=== PATIENT | female | born 1930 | race Hispanic/Latino ===

== ENCOUNTER 2018-04-23 14:53 | Inpatient (IN) | payer MEDICARE ==
[2018-04-23 15:16] VITALS: BMI 20.2
[2018-04-23] MEDS ORDERED: Pantoprazole 40 MG in Sodium Chloride 0.9% 100 ML IV STA (15:22)
[2018-04-23] MEDS ORDERED: Sodium Chloride 0.9% 500 ML IV STA (15:23)
--- NOTE | 2018-04-23 15:37 | ED PDOC ---
Arrival/HPI - General Time Seen by Provider: 04/23/18 15:14 Historian: Patient, Mcc (halfway helped provide information) - History of Present Illness Narrative History of Present Illness (Text): 04/23/18 15:14 88 year old female, whose past medical history includes hysterectomy, colostomy status post perforated viscus, and colonic vesicular fistula status post repair, who was sent to the Emergency department from [facility] complaining of abdominal pain, described as a burning sensation in stomach. As per halfway, pt says that she does not want to live anymore and was sent here for further evaluation. Patient notes nausea and vomiting. Pt was able to answer where she is correctly, but when asked what year it is pt said it is "1916." Pt is a poor historian. PMD: Dr. López Time/Duration: Prior to Arrival Symptom Onset: Sudden Symptom Course: Unchanged Quality: Burning (pt described abdominal pain as burning sensation) Past Medical History - Provider Review Nursing Documentation Reviewed: Yes - Reproductive Menopause: Yes - Cardiac Hx Cardiac Disorders: Yes Hx Hypertension: Yes - Pulmonary Hx Respiratory Disorders: Yes Hx Chronic Obstructive Pulmonary Disease (COPD): Yes - Gastrointestinal Hx Colitis: Yes Hx Colostomy: Yes - Genitourinary/Gynecological Hx Urinary Tract Infection: Yes - Psychiatric Hx Substance Use: No - Surgical History Other/Comment: colostomy - Anesthesia Hx Anesthesia: Yes Hx Anesthesia Reactions: No Hx Malignant Hyperthermia: No Family/Social History - Physician Review Nursing Documentation Reviewed: Yes Family/Social History: No Known Family HX Smoking Status: Former Smoker Hx Alcohol Use: No Hx Substance Use: No Allergies/Home Meds Allergies/Adverse Reactions: Allergies No Known Allergies Allergy (Verified 04/23/18 15:15) Review of Systems - Physician Review All systems were reviewed & negative as marked: Yes - Review of Systems Gastrointestinal: Abdominal Pain (pt notes abdominal pain, described as burning sensation), Nausea (pt notes nausea), Vomiting (pt notes vomiting). absent: Normal Physical Exam Vital Signs Reviewed: Yes Vital Signs Temp Pulse Resp BP Pulse Ox 04/23/18 15:16 98 F 76 18 116/60 95 Temperature: Afebrile Blood Pressure: Normal Pulse: Regular Respiratory Rate: Normal Appearance: Positive for: Well-Appearing, Non-Toxic Pain Distress: Mild Mental Status: Positive for: Confused (pt is alert and confused ) - Systems Exam Head: Present: Atraumatic, Normocephalic Pupils: Present: PERRL Extroacular Muscles: Present: EOMI Conjunctiva: Present: Normal Mouth: Present: Moist Mucous Membranes Neck: Present: Normal Range of Motion Respiratory/Chest: Present: Clear to Auscultation, Good Air Exchange. No: Respiratory Distress, Accessory Muscle Use Cardiovascular: Present: Regular Rate and Rhythm, Normal S1, S2. No: Murmurs Abdomen: Present: Tenderness (minimal nonfocal tenderness) Back: Present: Normal Inspection Upper Extremity: Present: Normal Inspection. No: Cyanosis, Edema Lower Extremity: Present: Normal Inspection. No: Edema Neurological: Present: GCS=15, CN II-XII Intact, Speech Normal Skin: Present: Warm, Dry, Normal Color. No: Rashes Psychiatric: Present: Alert, Other (confused) Medical Decision Making ED Course and Treatment: 04/23/18 15:14 Impression: 88 year old female who presents to the Emergency department complaining of abdominal pain, described as a burning sensation in stomach. Differential Diagnosis included but are not limited to: ?si ho of chorinc abd pain. esbl Plan: -- EKG -- Labs -- Amylase -- Cardiac ISO -- CMP -- Lipase -- CBC (with differential) -- PTT -- Prothrombin Time -- Protonix Inj 40mg Sodium chloride 0.9% 100ml IV -- IV fluids -- Urinalysis -- Reassess and disposition Progress Notes: 04/23/18 20:24 urine positve for esbl noted leukocytosi and gross hemautira. h/ o of esbl senstive to iv antibiotics. will admit medical and consult [facility] inpt. accpeted dr frias, - EKG Interpretation EKG Interpretation (Text): 04/23/18 EKG: Ordered, reviewed, and independently interpreted the EKG. Rate : 80 BPM Rhythm : NSR Interpretation : Nonspecific st-t wave changes Type: 12 lead EKG - Medication Orders Current Medication Orders: Pantoprazole Sodium 40 mg/ (Sodium Chloride) 100 mls @ 400 mls/hr IV STAT STA Stop: 04/23/18 15:36 Sodium Chloride (Sodium Chloride 0.9%) 500 mls @ 999 mls/hr IV .Q31M STA Stop: 04/23/18 15:53 - Scribe Statement The provider has reviewed the documentation as recorded by the Scribe Andreia Williamanjh All medical record entries made by the Ermelinda were at my direction and personally dictated by me. I have reviewed the chart and agree that the record accurately reflects my personal performance of the history, physical exam, medical decision making, and the department course for this patient. I have also personally directed, reviewed, and agree with the discharge instructions and disposition. Disposition/Present on Arrival - Present on Arrival Any Indicators Present on Arrival: No History of DVT/PE: No History of Uncontrolled Diabetes: No Urinary Catheter: No History of Decub. Ulcer: No History Surgical Site Infection Following: None - Disposition Have Diagnosis and Disposition been Completed?: Yes Diagnosis: ESBL (extended spectrum beta-lactamase) producing bacteria infection, UTI (urinary tract infection), Acute kidney injury, Hematuria, Suicidal ideation Disposition: HOSPITALIZED Disposition Time: 18:00 Condition: STABLE
--- NOTE | 2018-04-23 17:10 | RAD ---
Date of service: 04/23/2018 HISTORY: Abdominal pain. COMPARISON: No prior. FINDINGS: LUNGS: No active pulmonary disease. PLEURA: No significant pleural effusion identified, no pneumothorax apparent. CARDIOVASCULAR: No atherosclerotic calcification present No radiographic findings to suggest acute or significant cardiovascular disease. OSSEOUS STRUCTURES: No significant abnormalities. VISUALIZED UPPER ABDOMEN: Normal. OTHER FINDINGS: None. IMPRESSION: No active disease.
[2018-04-23 17:47] LABS: BASO # 0.07 K/mm3 (0.0-2.0); BASO % 0.4 % (0.0-3.0); EOS # 0.1 (0.0-0.7); EOS % 0.6 % (1.5-5.0); GRAN # 15.74 (1.4-6.5); GRAN % 82.1 % (50.0-68.0); HEMOGLOBIN 11.3 g/dL (12.0-16.0); LYMPH # 2.4 (1.2-3.4); LYMPH % 12.6 % (22.0-35.0); MEAN CELL VOLUME 87.3 fl (80.0-105.0); MEAN CORPUSCULAR HEMOGLOBIN 28.7 pg (25.0-35.0); MEAN CORPUSCULAR HGB CONC 32.8 g/dl (31.0-37.0); MEAN PLATELET VOLUME 9.4 fl (7.0-11.0); MONO # 0.8 (0.1-0.6); MONO % 4.3 % (1.0-6.0); RBC 3.94 10^6/uL (3.5-6.1); RED CELL DISTRIBUTION WIDTH 16.5 % (11.5-14.5); WHITE BLOOD COUNT 19.2 10^3/uL (4.5-11.0)
[2018-04-23 17:52] LABS: ACETAMINOPHEN < 10.0 ug/ml (10.0-20.0); SALICYLATE < 1 mg/dL (2.0-20.0)
[2018-04-23 17:54] LABS: ALB/GLOB RATIO 0.9 (1.1-1.8); ALBUMIN 3.4 g/dL (3.0-4.8); ALT/SGPT 19 U/L (7-56); AMYLASE 67 U/L (35-125); AST/SGOT 18 U/L (14-36); BLOOD UREA NITROGEN 58 mg/dL (7-21); CALCIUM 9.2 mg/dL (8.4-10.5); GFR NON-AFRICAN AMERICAN 28; LIPASE 242 U/L (23-300)
[2018-04-23 17:55] LABS: INR 1.28; PARTIAL THROMBOPLASTIN TIME 25.8 Seconds (25.1-36.5); PROTHROMBIN TIME 14.7 SECONDS (9.4-12.5)
[2018-04-23 18:04] LABS: TROPONIN I 0.02 ng/mL
--- NOTE | 2018-04-23 18:36 | CT ---
Date of service: 04/23/2018 PROCEDURE: CT Abdomen and Pelvis without intravenous contrast HISTORY: abd pain h/o of colostomy COMPARISON: None. TECHNIQUE: Unenhanced. Neither IV nor oral contrast administered Radiation dose: Total exam DLP = 260.59 mGy-cm. This CT exam was performed using one or more of the following dose reduction techniques: Automated exposure control, adjustment of the mA and/or kV according to patient size, and/or use of iterative reconstruction technique. FINDINGS: LOWER THORAX: Bibasilar linear atelectasis LIVER: Unremarkable. No gross lesion or ductal dilatation. GALLBLADDER AND BILE DUCTS: Unremarkable. PANCREAS: Unremarkable. No gross lesion or ductal dilatation. SPLEEN: Unremarkable. ADRENALS: Unremarkable. No mass. KIDNEYS AND URETERS: Right kidney in ureter: Unremarkable. No hydronephrosis. No solid mass. Left kidney in ureter: Exophytic partially calcified cyst projects off the anterior aspect of the left kidney. Dilatation of the left collecting system, extrarenal pelvis on the left. The remainder of the left ureter is of normal caliber and course. VASCULATURE: Atherosclerotic calcification and mural plaque present. Findings are seen throughout the aorta which is non aneurysmal. BOWEL: Unremarkable left lower quadrant colostomy. No evidence of prolapsed bowel within the subcutaneous tissues. No evidence of mechanical obstruction. Diverticulosis without acute diverticulitis. APPENDIX: No abnormalities to suggest acute appendicitis. No right lower quadrant inflammatory processes identified. PERITONEUM: Unremarkable. No free fluid. No free air. LYMPH NODES: Unremarkable. No enlarged lymph nodes. BLADDER: Air-fluid level the urinary bladder. Chaidez catheter in place/satisfactory position. REPRODUCTIVE: Unremarkable. BONES: No acute fracture. OTHER FINDINGS: None. IMPRESSION: Unremarkable colostomy and adjacent, associated bowel. No acute findings related to/ accounting for the clinical presentation. Additional benign and/or incidental findings described above.
[2018-04-23] MEDS ORDERED: cefTRIAXone 1 gm 1 GM/100 ML BAG IVPB STA (18:49)
--- NOTE | 2018-04-23 18:52 | CARD ---
APPROVED REPORT Date of service: 04/23/2018 EKG Measurement Heart [id number] <Conclusion> Normal sinus rhythm Septal infarct, age undetermined Nonspecific T wave abnormality, consider lateral ischemia Abnormal ECG
[2018-04-23] MEDS ORDERED: Sod Polystyrene Sulf 15 gm/60 ml Susp PO STA (19:24)
[2018-04-23 19:52] LABS: URINE BILIRUBIN SMALL (NEGATIVE); URINE BLOOD LARGE (NEGATIVE); URINE GLUCOSE (UA) NEGATIVE (NEGATIVE); URINE LEUKOCYTE ESTERASE MODERATE Leu/uL (NEGATIVE); URINE PROTEIN >=300 mg/dL (<30 mg/dL); URINE UROBILINOGEN 0.2 E.U./dL (<1 E.U./dL)
[2018-04-23 19:56] LABS: URINE APPEARANCE BLOODY (CLEAR)
[2018-04-23 20:09] LABS: URINE BACTERIA SMALL (NEG); URINE COLOR DARK RED (YELLOW); URINE EPITHELIAL CELLS MANY /hpf (0-5); URINE RBC TNTC /hpf (0-2); URINE WBC TNTC /hpf (0-6)
--- NOTE | 2018-04-23 21:27 | CP.PCM.HP ---
<Sandie Collier - Last Filed: 04/24/18 06:26> History of Present Illness - History of Present Illness History of Present Illness: Sandie Collier, PGY1 Hospital H&P This is a 88 year old female with PMH of HTN, HLD, COPD, depression, colostomy s/p perforated viscus and colonic vesicular fistula s/p repair presenting to the ED from [facility] for approximately 2 week history of abdominal pain and UTI. Patient is poor historian at this time and history obtained from medical records from [facility] and EMS. Patient has been complaining of B/L lower abdominal pain for the last few weeks associated with urinary burning as well as nausea and vomiting. Patient has tested positive for ESBL in past. Patient also is admitting to suicidal ideations over the last week week but denies suicidal ideations at this time time including visual/auditory hallucinations. Per [facility] documentation, patient is DNR/DNH/DNI but will need hospitalization due to suicidal ideations. 12 point ROS is limited due to patient status at this time and patient denies CP, SOB, fevers, headaches, urinary frequency, dysuria, hematuria, hematemesis, numbness, tingling, swelling and recent sickness. PMD: Dr. López PMH: HTN, HLD, COPD, depression, colostomy s/p perforated viscus and colonic vesicular fistula s/p repair SH: admits to occasional drinking and smoking, denies and drug use Sx: hysterectomy, colostomy s/p perforated viscus and colonic vesicular fistula s/p repair All: KNDA FH: denies Present on Admission - Present on Admission Any Indicators Present on Admission: Yes Urinary Catheter: Yes Past Patient History - Past Social History Smoking Status: Light Smoker < 10 Cigarettes Daily - CARDIAC Hx Cardiac Disorders: Yes Hx Hypertension: Yes - PULMONARY Hx Respiratory Disorders: Yes Hx Chronic Obstructive Pulmonary Disease (COPD): Yes - GASTROINTESTINAL Hx Colitis: Yes Hx Colostomy: Yes - GENITOURINARY/GYNECOLOGICAL Hx Urinary Tract Infection: Yes - PSYCHIATRIC Hx Substance Use: No - SURGICAL HISTORY Other/Comment: colostomy - ANESTHESIA Hx Anesthesia: Yes Hx Anesthesia Reactions: No Hx Malignant Hyperthermia: No Meds Allergies/Adverse Reactions: Allergies Allergy/AdvReac Type Severity Reaction Status Date / Time cat dander Allergy RASH Verified 04/24/18 07:45 Physical Exam - Constitutional Appears: No Acute Distress Additional comments: lethargic - Head Exam Head Exam: ATRAUMATIC, NORMAL INSPECTION - Eye Exam Eye Exam: EOMI Pupil Exam: PERRL - ENT Exam ENT Exam: Mucous Membranes Dry - Respiratory Exam Respiratory Exam: Clear to Auscultation Bilateral, NORMAL BREATHING PATTERN. absent: Accessory Muscle Use, Wheezes - Cardiovascular Exam Cardiovascular Exam: REGULAR RHYTHM, +S1, +S2 - GI/Abdominal Exam GI & Abdominal Exam: Normal Bowel Sounds, Soft. absent: Distended, Firm, Guarding, Tenderness Additional comments: left sided colostomy bag present draining brown stool, no hematochezia appreciated. Colostomy site is non erythematous, no puss appreciated - Extremities Exam Extremities exam: Positive for: normal inspection, pedal pulses present. Negative for: calf tenderness, tenderness - Back Exam Back exam: NORMAL INSPECTION - Neurological Exam Neurological exam: Alert, Altered, CN II-XII Intact Additional comments: Alert to person and place, not oriented to time - Skin Skin Exam: Normal Color, Warm Results - Vital Signs Recent Vital Signs: Last Vital Signs Temp 98 F 04/23/18 15:16 Pulse 73 04/23/18 20:52 Resp 18 04/23/18 20:52 BP 118/55 L 04/23/18 20:52 Pulse Ox 96 04/23/18 20:52 - Labs Result Diagrams: 04/23/18 17:30 04/23/18 17:30 Labs: Laboratory Results - last 24 hr 04/23/18 04/23/18 04/23/18 17:30 17:30 17:30 WBC 19.2 H RBC 3.94 Hgb 11.3 L Hct 34.4 L MCV 87.3 MCH 28.7 MCHC 32.8 RDW 16.5 H Plt Count 484 H MPV 9.4 Gran % 82.1 H Lymph % (Auto) 12.6 L [place] % (Auto) 4.3 Eos % (Auto) 0.6 L Baso % (Auto) 0.4 Gran # 15.74 H Lymph # (Auto) 2.4 [place] # (Auto) 0.8 H Eos # (Auto) 0.1 Baso # (Auto) 0.07 PT 14.7 H INR 1.28 APTT 25.8 Sodium 131 L Potassium 5.3 H Chloride 106 Carbon Dioxide 15 L Anion Gap 15 BUN 58 H Creatinine 1.7 H Est GFR ( Amer) 34 Est GFR (Non-Af Amer) 28 Random Glucose 138 H Calcium 9.2 Total Bilirubin 0.4 AST 18 ALT 19 Alkaline Phosphatase 94 Lactate Dehydrogenase 420 Total Creatine Kinase < 20 L Troponin I 0.02 Total Protein 7.1 Albumin 3.4 Globulin 3.7 Albumin/Globulin Ratio 0.9 L Amylase 67 Lipase 242 Urine Color Urine Appearance Urine pH Ur Specific [place] Urine Protein Urine Glucose (UA) Urine Ketones Urine Blood Urine Nitrate Urine Bilirubin Urine Urobilinogen Ur Leukocyte Esterase Urine RBC Urine WBC Ur Epithelial Cells Urine Bacteria Salicylates Acetaminophen Alcohol, Quantitative 04/23/18 04/23/18 04/23/18 17:30 17:30 18:50 WBC RBC Hgb Hct MCV MCH MCHC RDW Plt Count MPV Gran % Lymph % (Auto) [place] % (Auto) Eos % (Auto) Baso % (Auto) Gran # Lymph # (Auto) [place] # (Auto) Eos # (Auto) Baso # (Auto) PT INR APTT Sodium Potassium Chloride Carbon Dioxide Anion Gap BUN Creatinine Est GFR ( Amer) Est GFR (Non-Af Amer) Random Glucose Calcium Total Bilirubin AST ALT Alkaline Phosphatase Lactate Dehydrogenase Total Creatine Kinase Troponin I Total Protein Albumin Globulin Albumin/Globulin Ratio Amylase Lipase Urine Color Dark red Urine Appearance Bloody Urine pH 7.0 Ur Specific [place] 1.025 Urine Protein >=300 H Urine Glucose (UA) Negative Urine Ketones Negative Urine Blood Large H Urine Nitrate Positive H Urine Bilirubin Small H Urine Urobilinogen 0.2 Ur Leukocyte Esterase Moderate H Urine RBC Tntc Urine WBC Tntc Ur Epithelial Cells Many Urine Bacteria Small Salicylates < 1 L Acetaminophen < 10.0 L Alcohol, Quantitative < 10 Assessment & Plan - Assessment and Plan (Free Text) Assessment: This is a 88 year old female with PMH of HTN, HLD, COPD, depression, colostomy s/p perforated viscus and colonic vesicular fistula s/p repair presenting to the ED from [facility] for approximately 2 week history of abdominal pain and UTI. Plan: UTI -U/A positive for protein, blood, nitrate, leuk esterase -continue rocephin day 1 -urine culture pending -procalc pending -previous U/A on 04/07 was negative for nitrates and leuk esterase -pelvic US on 04/13/18 was unremarkable -elevated WBC on initial presentation, will monitor. WBC on 04/13/18 was 16.8 VALENTIN -consider etiology of dehydration -BUN/Cr on 04/13/18 was 28/1 -NS @ 100cc -if not improved by AM, recommend nephrology consult Hyponatremia -likely 2/2 dehydration -NS @ 100cc -Na level on 04/13/18 was 138 -will monitor Hyperkalemia -kayexalate give in ED -f/u AM labs Hx of HTN -metoprolol, losartan and amlodipine -ASA Hx of depression -lexapro Hx of COPD -duonebs -prednisone 5mg, advair Hx of HLD -lipitor Suicidal Ideations -denies command auditory/visual hallucinations -1:1 watch -psych on consult, Dr. Nails DNH Status -[facility] documentations indicate patient is DNI/DNR/DNH -due to patient's suidical ideations we will admit patient, follow up in AM if patient needs continued hospitalization PPX with SCD and pepcid HHD Patient seen and case discussed with attending, Dr. Carrasco <Chau Carrasco - Last Filed: 04/27/18 02:08> Results - Vital Signs Recent Vital Signs: Last Vital Signs Temp 98.7 F 04/26/18 21:51 Pulse 84 04/26/18 21:51 Resp 18 04/26/18 21:51 BP 118/68 04/26/18 21:51 Pulse Ox 96 04/26/18 21:51 - Labs Result Diagrams: 04/24/18 06:20 04/24/18 06:20 Attending/Attestation - Attestation I have personally seen and examined this patient.: Yes I have fully participated in the care of the patient.: Yes I have reviewed all pertinent clinical information: Yes
[2018-04-24] MEDS ORDERED: Albuterol-Ipratrop 3 mg / 0.5 (3 ml) UD IH PRN (00:01)
[2018-04-24] MEDS: Sodium Chloride 0.9% 1,000 ML IV SCH ×3 (00:10→19:49)
[2018-04-24] MEDS ORDERED: Oxycodone/Acetaminophen 5/325 mg Tab PO PRN (06:24)
[2018-04-24] MEDS ORDERED: Magnesium Hydroxide Susp 30 ml UD PO PRN (06:24)
[2018-04-24 07:00] LABS: BASO # 0.05 K/mm3 (0.0-2.0); BASO % 0.3 % (0.0-3.0); EOS # 0.4 (0.0-0.7); EOS % 2.6 % (1.5-5.0); GRAN # 10.27 (1.4-6.5); GRAN % 71.5 % (50.0-68.0); HEMOGLOBIN 10.7 g/dL (12.0-16.0); LYMPH # 2.8 (1.2-3.4); LYMPH % 19.2 % (22.0-35.0); MEAN CELL VOLUME 88.9 fl (80.0-105.0); MEAN CORPUSCULAR HEMOGLOBIN 28.3 pg (25.0-35.0); MEAN CORPUSCULAR HGB CONC 31.8 g/dl (31.0-37.0); MEAN PLATELET VOLUME 9.7 fl (7.0-11.0); MONO # 0.9 (0.1-0.6); MONO % 6.4 % (1.0-6.0); RBC 3.78 10^6/uL (3.5-6.1); RED CELL DISTRIBUTION WIDTH 16.9 % (11.5-14.5); WHITE BLOOD COUNT 14.4 10^3/uL (4.5-11.0)
[2018-04-24 07:22] LABS: ALB/GLOB RATIO 0.9 (1.1-1.8); ALBUMIN 3.1 g/dL (3.0-4.8); CALCIUM 8.9 mg/dL (8.4-10.5)
[2018-04-24] MEDS: Budesonide 0.5 mg/2 ml Inhal Susp UD IH SCH ×2 (07:22→20:17)
[2018-04-24] MEDS: Arformoterol 15 mcg/2 ml Inh Sol IH SCH ×2 (07:22→20:17)
[2018-04-24] MEDS ORDERED: cefTRIAXone 1 gm 1 GM/100 ML BAG IVPB SCH (10:00)
[2018-04-24] MEDS ORDERED: Fluticasone-Salmeterol 250-50mcg Diskus IH SCH (10:00)
--- NOTE | 2018-04-24 10:20 | CP.PCM.APN ---
Subjective - Date & Time of Evaluation Date of Evaluation: 04/24/18 Time of Evaluation: 07:50 - Subjective Subjective: Pt seen and examined at bedside. Denies abdominal pain, nausea or vomiting. In no acute distress. Pt on 1:1 observation. Pt states that she would rather than be sick. Review of Systems - Gastrointestinal Gastrointestinal: As Per HPI - Genitourinary Additional comments: burning sensation Objective - Vital Signs/Intake and Output Vital Signs (last 24 hours): Temp Pulse Resp BP Pulse Ox 97.9 F 88 18 112/54 L 98 04/24/18 06:00 04/24/18 08:46 04/24/18 06:00 04/24/18 06:00 04/24/18 06:00 - Medications Medications: Current Medications Albuterol/Ipratropium (Duoneb 3 Mg/0.5 Mg (3 Ml) Ud) 3 ml IH Q2H PRN PRN Reason: Shortness of Breath Last Admin: 04/24/18 07:22 Dose: 3 ml Amlodipine Besylate (Norvasc) 10 mg PO DAILY [facility] Arformoterol Tartrate (Brovana) 15 mcg IH [id number] [facility] Last Admin: 04/24/18 07:22 Dose: 15 mcg Aspirin (Aspirin Chewable) 81 mg PO DAILY [facility] Atorvastatin Calcium (Lipitor) 40 mg PO DIN [facility] Budesonide (Pulmicort Respules) 0.5 mg IH [id number] [facility] Last Admin: 04/24/18 07:22 Dose: 0.5 mg Escitalopram Oxalate (Lexapro) 5 mg PO DAILY [facility] Famotidine (Pepcid) 20 mg IVP DAILY [facility] Ceftriaxone Sodium (Rocephin 1 Gram Ivpb) 1 gm in 100 mls @ 100 mls/hr IVPB DAILY [facility]; Protocol Sodium Chloride (Sodium Chloride 0.9%) 1,000 mls @ 100 mls/hr IV .Q10H [facility] Last Admin: 04/24/18 00:10 Dose: 100 mls/hr Loperamide HCl (Imodium) 2 mg PO QID PRN PRN Reason: Diarrhea Losartan Potassium (Cozaar) 100 mg PO DAILY [facility] Magnesium Hydroxide (Milk Of Magnesia) 30 ml PO DAILY PRN PRN Reason: Constipation Metoprolol Succinate (Toprol Xl) 50 mg PO BRK [facility] Oxycodone/Acetaminophen (Percocet 5/325 Mg Tab) 1 tab PO Q6H PRN PRN Reason: Pain, severe (8-10) Stop: 04/27/18 06:25 Prednisone (Prednisone Tab) 5 mg PO DAILY [facility] - Labs Labs: 04/24/18 06:20 04/24/18 06:20 PT 14.7 SECONDS (9.4-12.5) H 04/23/18 17:30 INR 1.28 04/23/18 17:30 APTT 25.8 Seconds (25.1-36.5) 04/23/18 17:30 - Constitutional Appears: Well, No Acute Distress - Head Exam Head Exam: ATRAUMATIC, NORMAL INSPECTION, NORMOCEPHALIC - Eye Exam Eye Exam: Normal appearance - ENT Exam ENT Exam: Normal Exam - Neck Exam Neck Exam: Full ROM - Respiratory Exam Respiratory Exam: NORMAL BREATHING PATTERN - Cardiovascular Exam Cardiovascular Exam: REGULAR RHYTHM, +S1, +S2 - GI/Abdominal Exam Additional comments: +colostomy - Rectal Exam Rectal Exam: Deferred - Exam Additional comments: +vasquez with hematuria - Neurological Exam Neurological Exam: Alert, Awake Assessment and Plan - Assessment and Plan (Free Text) Assessment: pt is an 88 year old female w/ PMHx of hysterectomy, colostomy status post perforated viscus, and colonic vesicular fistula status post repair, who [facility] complaining of abdominal pain, described as a burning sensation in stomach. Per ns home, pt stated that she does not want to live anymore. She is admitted for UTI, renal insufficiency and on 1:1 for suicidal ideation. Plan: Change vasquez if not done Pending UCx C/W IV abx C/W IVFs Monitor urine output Check labs in AM Meds per JUL Psych on consult C/W 1:1 Will continue to follow
[2018-04-24] MEDS: Metoprolol Succinate 50 mg XL Tab PO SCH ×2 (10:49→12:33)
[2018-04-25] MEDS: Budesonide 0.5 mg/2 ml Inhal Susp UD IH SCH ×2 (07:18→19:24)
[2018-04-25] MEDS: Arformoterol 15 mcg/2 ml Inh Sol IH SCH ×2 (07:18→19:24)
--- NOTE | 2018-04-25 08:39 | CP.PCM.APN ---
Subjective - Date & Time of Evaluation Date of Evaluation: 04/25/18 Time of Evaluation: 07:45 - Subjective Subjective: Pt seen and examined at bedside. Denies suicidal ideations. No acute events overnight. Pt remains afebrile. Objective - Vital Signs/Intake and Output Vital Signs (last 24 hours): Temp Pulse Resp BP Pulse Ox 98.5 F 98 H 18 132/58 L 100 04/24/18 22:27 04/24/18 22:27 04/24/18 22:27 04/24/18 22:27 04/24/18 22:27 - Medications Medications: Current Medications Albuterol/Ipratropium (Duoneb 3 Mg/0.5 Mg (3 Ml) Ud) 3 ml IH Q2H PRN PRN Reason: Shortness of Breath Last Admin: 04/24/18 07:22 Dose: 3 ml Amlodipine Besylate (Norvasc) 10 mg PO DAILY [facility] Last Admin: 04/24/18 12:32 Dose: Not Given Arformoterol Tartrate (Brovana) 15 mcg IH [id number] [facility] Last Admin: 04/25/18 07:18 Dose: 15 mcg Aspirin (Aspirin Chewable) 81 mg PO DAILY [facility] Last Admin: 04/24/18 10:56 Dose: Not Given Atorvastatin Calcium (Lipitor) 40 mg PO DIN [facility] Last Admin: 04/24/18 17:13 Dose: Not Given Budesonide (Pulmicort Respules) 0.5 mg IH [id number] [facility] Last Admin: 04/25/18 07:18 Dose: 0.5 mg Escitalopram Oxalate (Lexapro) 5 mg PO DAILY [facility] Last Admin: 04/24/18 12:32 Dose: Not Given Famotidine (Pepcid) 20 mg IVP DAILY [facility] Last Admin: 04/24/18 10:49 Dose: 20 mg Ceftriaxone Sodium (Rocephin 1 Gram Ivpb) 1 gm in 100 mls @ 100 mls/hr IVPB DAILY [facility]; Protocol Last Admin: 04/24/18 10:50 Dose: 100 mls/hr Sodium Chloride (Sodium Chloride 0.9%) 1,000 mls @ 100 mls/hr IV .Q10H [facility] Last Admin: 04/24/18 19:49 Dose: Not Given Loperamide HCl (Imodium) 2 mg PO QID PRN PRN Reason: Diarrhea Losartan Potassium (Cozaar) 100 mg PO DAILY [facility] Last Admin: 04/24/18 10:59 Dose: Not Given Magnesium Hydroxide (Milk Of Magnesia) 30 ml PO DAILY PRN PRN Reason: Constipation Metoprolol Succinate (Toprol Xl) 50 mg PO BRK [facility] Last Admin: 04/24/18 12:33 Dose: Not Given Oxycodone/Acetaminophen (Percocet 5/325 Mg Tab) 1 tab PO Q6H PRN PRN Reason: Pain, severe (8-10) Stop: 04/27/18 06:25 Last Admin: 04/24/18 19:46 Dose: 1 tab Prednisone (Prednisone Tab) 5 mg PO DAILY [facility] Last Admin: 04/24/18 12:33 Dose: Not Given - Labs Labs: 04/24/18 06:20 04/24/18 06:20 PT 14.7 SECONDS (9.4-12.5) H 04/23/18 17:30 INR 1.28 04/23/18 17:30 APTT 25.8 Seconds (25.1-36.5) 04/23/18 17:30 - Constitutional Appears: Well, No Acute Distress - Head Exam Head Exam: ATRAUMATIC - Eye Exam Eye Exam: Normal appearance - ENT Exam ENT Exam: Normal Exam - Neck Exam Neck Exam: Normal Inspection - Respiratory Exam Respiratory Exam: Clear to Ausculation Bilateral, NORMAL BREATHING PATTERN - Cardiovascular Exam Cardiovascular Exam: REGULAR RHYTHM, +S1, +S2 - GI/Abdominal Exam Additional comments: +colostomy - Rectal Exam Rectal Exam: Deferred - Exam Additional comments: +vasquez with dark jerson urine - Neurological Exam Neurological Exam: Alert, Awake Assessment and Plan - Assessment and Plan (Free Text) Assessment: pt is an 88 year old female w/ PMHx of hysterectomy, colostomy status post perforated viscus, and colonic vesicular fistula status post repair. She is admitted for UTI, renal insufficiency and on 1:1 for suicidal ideation. Plan: C/W IVFs C/W IV abx Pending urine culture Psych on consult Meds per MAR Physical Therapy Will continue to follow.
[2018-04-25] MEDS: Cefpodoxime (Vantin) 200 mg Tab PO SCH (11:59)
[2018-04-25] MEDS: Metoprolol Succinate 50 mg XL Tab PO SCH (12:01)
[2018-04-25] MEDS: Sodium Chloride 0.9% 1,000 ML IV SCH (12:08)
--- NOTE | 2018-04-25 14:47 | CON ---
DATE: 04/25/2018 HISTORY OF PRESENT ILLNESS: In short, the patient is an 88-year-old female with not known previous psychiatric history, most likely the patient has history of mood spectrum disorder. The [facility] after the patient expressed feeling of hopelessness as well as suicidal ideation. The patient requires medical admission because of leukocytosis and urinary tract infection. Psych consult was called for depression as well as possible suicidal ideation. The patient was seen and examined. Medication list was reviewed from [facility]. The patient was alert, oriented. The patient knows that she is in the hospital and hospital name, but was not aware of the date. The patient appears to be annoyed and irritable. The patient initially was answering reluctantly for all of the questions, but by the end of the interview, the patient seems to be more willing to provide information. 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 The patient reported that she is feeling depressed. The patient was making hopeless statements, such as why bother to watch TV, why the need to live. The patient denied hearing voices, denied seeing things, but the patient appears to be guarded. The patient does not appear to be anxious. PAST PSYCHIATRIC HISTORY: The patient denied that she has ever been seen by psychiatrist. Denied history of being admitted to the Psychiatric Inpatient Unit. Denied history of suicidal attempt, but the patient was seen by psychiatrist in the [facility]. PHYSICAL EXAMINATION: VITAL SIGNS: Stable. Temperature 99.5, pulse is 98, blood pressure 132/58, respirations 18, oxygen saturation is 100. MEDICATIONS: Reviewed. The patient is on DuoNeb; Norvasc, which the patient refused; Brovana; aspirin, the patient refused the medication; Lipitor; Pulmicort; Vantin. The patient is on Lexapro 5 mg daily, but the patient refused to take it. The patient is on Imodium, Cozaar, milk of magnesia, metoprolol, Percocet, prednisone as well as sodium chloride. LABORATORY DATA: Reviewed. Hematology showed leukocytosis, which is trending down. Chemistry reviewed. Sodium was low at 131. Urinalysis showed leukocyte esterase moderate. Toxicology was negative. Microbiology showed ESBL. MENTAL STATUS EXAMINATION: The patient appears to be alert and oriented, annoyed and irritable. Mood described, why bother? Thought process, goal directed. Thought content, the patient denied visual, auditory, or tactile hallucinations. Denied paranoid ideation. The patient presented to be hopeless, but denied any intent or plan to kill herself. Insight and judgment seemed to be limited. Impulses are well controlled so far. IMPRESSION: Rule out major depressive disorder, rule out adjustment disorder with depressed and anxious mood. PLAN: Continue current medication, current management. We will call Dr. Birch for collateral information about this patient. There is no need for the patient to be on one-to-one. Should you have any questions, give me a call back. Thank you very much for letting me participate in care of your patient. Hawa Hinds MD
--- NOTE | 2018-04-25 16:08 | CP.PCM.PN ---
<Radha Matos - Last Filed: 04/25/18 16:01> Subjective - Date & Time of Evaluation Date of Evaluation: 04/25/18 Time of Evaluation: 16:02 - Subjective Subjective: Radha Matos, PGY-1, Internal Medicine Progress Note for Dr. Ibarra Patient seen and evaluated at bedside. Patient had no acute overnight events. Patient is AAOx3 at bedside. Patient denies chest pain, shortness of breath, nausea, vomiting, constipation, diarrhea. Patient does not have any abdominal pain today. 12-point ROS was unremarkable except for what was mentioned above. Objective - Vital Signs/Intake and Output Vital Signs (last 24 hours): Temp Pulse Resp BP Pulse Ox 98.1 F 101 H 18 133/60 97 04/25/18 14:00 04/25/18 14:00 04/25/18 14:00 04/25/18 14:00 04/25/18 14:00 - Medications Medications: Current Medications Albuterol/Ipratropium (Duoneb 3 Mg/0.5 Mg (3 Ml) Ud) 3 ml IH Q2H PRN PRN Reason: Shortness of Breath Last Admin: 04/24/18 07:22 Dose: 3 ml Amlodipine Besylate (Norvasc) 10 mg PO DAILY [facility] Last Admin: 04/25/18 12:00 Dose: 10 mg Arformoterol Tartrate (Brovana) 15 mcg IH [id number] [facility] Last Admin: 04/25/18 07:18 Dose: 15 mcg Aspirin (Aspirin Chewable) 81 mg PO DAILY [facility] Last Admin: 04/25/18 12:03 Dose: Not Given Atorvastatin Calcium (Lipitor) 40 mg PO DIN [facility] Last Admin: 04/24/18 17:13 Dose: Not Given Budesonide (Pulmicort Respules) 0.5 mg IH [id number] [facility] Last Admin: 04/25/18 07:18 Dose: 0.5 mg Cefpodoxime Proxetil (Vantin) 200 mg PO DAILY [facility] Last Admin: 04/25/18 11:59 Dose: 200 mg Escitalopram Oxalate (Lexapro) 5 mg PO DAILY [facility] Last Admin: 04/25/18 15:57 Dose: Not Given Famotidine (Pepcid) 20 mg PO DAILY [facility] Last Admin: 04/25/18 15:58 Dose: Not Given Sodium Chloride (Sodium Chloride 0.9%) 1,000 mls @ 100 mls/hr IV .Q10H [facility] Last Admin: 04/25/18 12:08 Dose: Not Given Loperamide HCl (Imodium) 2 mg PO QID PRN PRN Reason: Diarrhea Losartan Potassium (Cozaar) 100 mg PO DAILY [facility] Last Admin: 04/25/18 12:07 Dose: Not Given Magnesium Hydroxide (Milk Of Magnesia) 30 ml PO DAILY PRN PRN Reason: Constipation Metoprolol Succinate (Toprol Xl) 50 mg PO BRK [facility] Last Admin: 04/25/18 12:01 Dose: 50 mg Oxycodone/Acetaminophen (Percocet 5/325 Mg Tab) 1 tab PO Q6H PRN PRN Reason: Pain, severe (8-10) Stop: 04/27/18 06:25 Last Admin: 04/24/18 19:46 Dose: 1 tab Prednisone (Prednisone Tab) 5 mg PO DAILY [facility] Last Admin: 04/25/18 12:00 Dose: 5 mg - Labs Labs: 04/24/18 06:20 04/24/18 06:20 PT 14.7 SECONDS (9.4-12.5) H 04/23/18 17:30 INR 1.28 04/23/18 17:30 APTT 25.8 Seconds (25.1-36.5) 04/23/18 17:30 - Constitutional Appears: Well, Non-toxic, No Acute Distress - Head Exam Head Exam: ATRAUMATIC, NORMAL INSPECTION, NORMOCEPHALIC - Eye Exam Eye Exam: EOMI Pupil Exam: PERRL - Respiratory Exam Respiratory Exam: Clear to Ausculation Bilateral, NORMAL BREATHING PATTERN - Cardiovascular Exam Cardiovascular Exam: REGULAR RHYTHM, RRR - GI/Abdominal Exam GI & Abdominal Exam: Soft, Normal Bowel Sounds. 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 Patient is a poor historian. Patient has a history of ESBL + urine in the past. Patient is DNR/DNR/DNH Plan: Urinary Tract Infection -Urinanalysis: large blood, positive nitrite, small bilirubin, moderate leukocyte esterase, TNTC of RBC and WBC, many epithelial cells, small bacteria -WBC: 14.4 but trending down, HR: 101, RR: 18, Temperature: 98.1. Patient satisfies SIRS criteria and has a source of infection. Awaiting blood culture results -Urine culture: gram negative hedy and gram positive cocci -Continue with vantin day 1. Low Bicarbonate -HCO3: 16 -Continue to monitor Depression with Suicidal Ideations -Continue with lexapro. -As per Dr. Hinds, patient presented to be hopeless but denied any intent or plan to kill herself. Insight and judgment are limited. Impulses are controlled at this time. Non need for 1:1. Patient is not reporting suicidal tendencies today. -Will follow up with Dr. Hinds if patient can make her own decision. History of Hypertension -Systolic BP ranging from 132-133 today. -Continue with norvasc, cozaar, metoprolol succinate. History of COPD -Continue with madhuri raphael History of Hyperlipidemia -Continue with lipitor 40 mg daily Disposition: DNR/DNI/DNH status signed 5 days prior to arrival at the hospital. I will follow up with Dr. Hinds if patient has the insight to make this decision. As per PT, upon discharge, patient should go to [facility]. Palliative care consulted for recommendations DVT prophylaxis: SCD GI prophylaxis: pepcid 20 mg daily Patient plan discussed with Dr. Ibarra. <Armando Ibarra - Last Filed: 04/25/18 19:20> Objective - Vital Signs/Intake and Output Vital Signs (last 24 hours): Temp Pulse Resp BP Pulse Ox 98.1 F 101 H 18 133/60 97 04/25/18 14:00 04/25/18 14:00 04/25/18 14:00 04/25/18 14:00 04/25/18 14:00 - Medications Medications: Current Medications Albuterol/Ipratropium (Duoneb 3 Mg/0.5 Mg (3 Ml) Ud) 3 ml IH Q2H PRN PRN Reason: Shortness of Breath Last Admin: 04/24/18 07:22 Dose: 3 ml Amlodipine Besylate (Norvasc) 10 mg PO DAILY [facility] Last Admin: 04/25/18 12:00 Dose: 10 mg Arformoterol Tartrate (Brovana) 15 mcg [id number] [facility] Last Admin: 04/25/18 07:18 Dose: 15 mcg Aspirin (Aspirin Chewable) 81 mg PO DAILY [facility] Last Admin: 04/25/18 12:03 Dose: Not Given Atorvastatin Calcium (Lipitor) 40 mg PO DIN [facility] Last Admin: 04/24/18 17:13 Dose: Not Given Budesonide (Pulmicort Respules) 0.5 mg IH [id number] [facility] Last Admin: 04/25/18 07:18 Dose: 0.5 mg Cefpodoxime Proxetil (Vantin) 200 mg PO DAILY [facility] Last Admin: 04/25/18 11:59 Dose: 200 mg Escitalopram Oxalate (Lexapro) 5 mg PO DAILY [facility] Last Admin: 04/25/18 15:57 Dose: Not Given Famotidine (Pepcid) 20 mg PO DAILY [facility] Last Admin: 04/25/18 15:58 Dose: Not Given Sodium Chloride (Sodium Chloride 0.9%) 1,000 mls @ 100 mls/hr IV .Q10H [facility] Last Admin: 04/25/18 12:08 Dose: Not Given Loperamide HCl (Imodium) 2 mg PO QID PRN PRN Reason: Diarrhea Losartan Potassium (Cozaar) 100 mg PO DAILY [facility] Last Admin: 04/25/18 12:07 Dose: Not Given Magnesium Hydroxide (Milk Of Magnesia) 30 ml PO DAILY PRN PRN Reason: Constipation Metoprolol Succinate (Toprol Xl) 50 mg PO BRK [facility] Last Admin: 04/25/18 12:01 Dose: 50 mg Oxycodone/Acetaminophen (Percocet 5/325 Mg Tab) 1 tab PO Q6H PRN PRN Reason: Pain, severe (8-10) Stop: 04/27/18 06:25 Last Admin: 04/24/18 19:46 Dose: 1 tab Prednisone (Prednisone Tab) 5 mg PO DAILY [facility] Last Admin: 04/25/18 12:00 Dose: 5 mg - Labs Labs: 04/24/18 06:20 04/24/18 06:20 PT 14.7 SECONDS (9.4-12.5) H 04/23/18 17:30 INR 1.28 04/23/18 17:30 APTT 25.8 Seconds (25.1-36.5) 04/23/18 17:30 Attending/Attestation - Attestation I have personally seen and examined this patient.: Yes I have fully participated in the care of the patient.: Yes I have reviewed all pertinent clinical information, including history, physical exam and plan: Yes Notes (Text): UTI HTN COPD Suicidal Ideation urine culture grew gram -ve hedy and gram +ve cocci c/w abx and f/u final culture and sensitivity c/w 1:1 awaiting psych eval
[2018-04-26] MEDS: Sodium Chloride 0.9% 1,000 ML IV SCH ×2 (05:06→21:40)
[2018-04-26 07:53] VITALS: RESP 18
[2018-04-26] MEDS: Arformoterol 15 mcg/2 ml Inh Sol IH SCH ×2 (08:17→19:20)
[2018-04-26] MEDS: Budesonide 0.5 mg/2 ml Inhal Susp UD IH SCH ×2 (08:23→19:20)
--- NOTE | 2018-04-26 10:28 | CP.PCM.APN ---
Subjective - Date & Time of Evaluation Date of Evaluation: 04/26/18 Time of Evaluation: 08:00 - Subjective Subjective: Pt seen and examined at bedside. She is in no acute distress. No acute events overnight. Objective - Vital Signs/Intake and Output Vital Signs (last 24 hours): Temp Pulse Resp BP Pulse Ox 97.9 F 89 18 124/57 L 96 04/26/18 06:00 04/26/18 06:00 04/26/18 06:00 04/26/18 06:00 04/26/18 06:00 Intake and Output: 04/26/18 04/26/18 06:59 18:59 Intake Total 120 Output Total 300 Balance -180 - Medications Medications: Current Medications Albuterol/Ipratropium (Duoneb 3 Mg/0.5 Mg (3 Ml) Ud) 3 ml IH Q2H PRN PRN Reason: Shortness of Breath Last Admin: 04/24/18 07:22 Dose: 3 ml Amlodipine Besylate (Norvasc) 10 mg PO DAILY [facility] Last Admin: 04/25/18 12:00 Dose: 10 mg Arformoterol Tartrate (Brovana) 15 mcg IH [id number] [facility] Last Admin: 04/26/18 08:17 Dose: 15 mcg Aspirin (Aspirin Chewable) 81 mg PO DAILY [facility] Last Admin: 04/25/18 12:03 Dose: Not Given Atorvastatin Calcium (Lipitor) 40 mg PO DIN [facility] Last Admin: 04/25/18 17:00 Dose: Not Given Budesonide (Pulmicort Respules) 0.5 mg IH [id number] [facility] Last Admin: 04/26/18 08:23 Dose: 0.5 mg Cefpodoxime Proxetil (Vantin) 200 mg PO DAILY [facility] Last Admin: 04/25/18 11:59 Dose: 200 mg Escitalopram Oxalate (Lexapro) 5 mg PO DAILY [facility] Last Admin: 04/25/18 15:57 Dose: Not Given Famotidine (Pepcid) 20 mg PO DAILY [facility] Last Admin: 04/25/18 15:58 Dose: Not Given Sodium Chloride (Sodium Chloride 0.9%) 1,000 mls @ 100 mls/hr IV .Q10H [facility] Last Admin: 04/26/18 05:06 Dose: Not Given Loperamide HCl (Imodium) 2 mg PO QID PRN PRN Reason: Diarrhea Losartan Potassium (Cozaar) 100 mg PO DAILY [facility] Last Admin: 04/25/18 12:07 Dose: Not Given Magnesium Hydroxide (Milk Of Magnesia) 30 ml PO DAILY PRN PRN Reason: Constipation Metoprolol Succinate (Toprol Xl) 50 mg PO BRK [facility] Last Admin: 04/25/18 12:01 Dose: 50 mg Oxycodone/Acetaminophen (Percocet 5/325 Mg Tab) 1 tab PO Q6H PRN PRN Reason: Pain, severe (8-10) Stop: 04/27/18 06:25 Last Admin: 04/24/18 19:46 Dose: 1 tab Prednisone (Prednisone Tab) 5 mg PO DAILY [facility] Last Admin: 04/25/18 12:00 Dose: 5 mg - Labs Labs: 04/24/18 06:20 04/24/18 06:20 PT 14.7 SECONDS (9.4-12.5) H 04/23/18 17:30 INR 1.28 04/23/18 17:30 APTT 25.8 Seconds (25.1-36.5) 04/23/18 17:30 - Constitutional Appears: Well, No Acute Distress - Head Exam Head Exam: ATRAUMATIC, NORMAL INSPECTION - Eye Exam Eye Exam: Normal appearance - ENT Exam ENT Exam: Mucous Membranes Moist - Neck Exam Neck Exam: Full ROM - Respiratory Exam Respiratory Exam: Clear to Ausculation Bilateral, NORMAL BREATHING PATTERN - Cardiovascular Exam Cardiovascular Exam: REGULAR RHYTHM, +S1, +S2 - GI/Abdominal Exam GI & Abdominal Exam: Soft, Normal Bowel Sounds Additional comments: +colostomy - Rectal Exam Rectal Exam: Deferred - Neurological Exam Neurological Exam: Alert, Awake, Oriented x3 Assessment and Plan - Assessment and Plan (Free Text) Assessment: Pt is 88 y.o. female admitted for UTI, renal insufficiency and suicidal ideations. Plan: Pending final results of UCx C/W IVFs Monitor urine output Psych on board - 1:1 discontinued yesterday. Per psych, pt can go back to [facility] and needs to be followed by psychiatrist. Unable to determine if pt was competent when she signed the DNR/DNI/DNH form from the facility where she came from. Meds per MAR Physical Therapy recommends [facility] SW/CM for discharge planning Will continue to follow
--- NOTE | 2018-04-26 17:02 | CP.PCM.PCO ---
Addendum Addendum: 04/26/18 17:00 pt pose no imminent danger to self or others, pt needs to be followed up by psychiatrist within 48hrs after discharge, pt may go back to [facility] see dictated note for more detailed information
--- NOTE | 2018-04-26 17:52 | CP.PCM.DIS ---
<JrfloydHelen wetzelmorenita - Last Filed: 04/26/18 17:38> Provider - Provider Date of Admission: 04/23/18 19:15 Attending physician: Vinny Wilson MD Primary care physician: none Consults: 04/23/18 23:56 Psychiatry Consult Routine Comment: Consulting Provider: Goldy Nails Consulting Physician: Goldy Nails Reason for Consult: suicidal ideations 04/25/18 16:26 Palliative Care Consult Routine Comment: Consulting Provider: Evon Medellin Physician Instructions: Reason For Exam: Patient has lost will to live Time Spent in preparation of Discharge (in minutes): 60 Diagnosis - Discharge Diagnosis (1) Suicidal ideation Status: Acute Hospital Course - Lab Results Lab Results: Micro Results 04/23/18 21:00 Urine,Clean Catch Urine Culture - Final Escherichia Coli Enterococcus Faecalis Most Recent Lab Values WBC 14.4 10^3/uL (4.5-11.0) H D 04/24/18 06:20 RBC 3.78 10^6/uL (3.5-6.1) 04/24/18 06:20 Hgb 10.7 g/dL (12.0-16.0) L 04/24/18 06:20 Hct 33.6 % (36.0-48.0) L 04/24/18 06:20 MCV 88.9 fl (80.0-105.0) 04/24/18 06:20 MCH 28.3 pg (25.0-35.0) 04/24/18 06:20 MCHC 31.8 g/dl (31.0-37.0) 04/24/18 06:20 RDW 16.9 % (11.5-14.5) H 04/24/18 06:20 Plt Count 411 10^3/uL (120.0-450.0) 04/24/18 06:20 MPV 9.7 fl (7.0-11.0) 04/24/18 06:20 Gran % 71.5 % (50.0-68.0) H 04/24/18 06:20 Lymph % (Auto) 19.2 % (22.0-35.0) L 04/24/18 06:20 [place] % (Auto) 6.4 % (1.0-6.0) H 04/24/18 06:20 Eos % (Auto) 2.6 % (1.5-5.0) 04/24/18 06:20 Baso % (Auto) 0.3 % (0.0-3.0) 04/24/18 06:20 Gran # 10.27 (1.4-6.5) H 04/24/18 06:20 Lymph # (Auto) 2.8 (1.2-3.4) 04/24/18 06:20 [place] # (Auto) 0.9 (0.1-0.6) H 04/24/18 06:20 Eos # (Auto) 0.4 (0.0-0.7) 04/24/18 06:20 Baso # (Auto) 0.05 K/mm3 (0.0-2.0) 04/24/18 06:20 PT 14.7 SECONDS (9.4-12.5) H 04/23/18 17:30 INR 1.28 04/23/18 17:30 APTT 25.8 Seconds (25.1-36.5) 04/23/18 17:30 Sodium 138 mmol/L (132-148) 04/24/18 06:20 Potassium 4.6 mmol/L (3.6-5.0) 04/24/18 06:20 Chloride 112 mmol/L (98-107) H 04/24/18 06:20 Carbon Dioxide 16 mmol/L (21-33) L 04/24/18 06:20 Anion Gap 14 (10-20) 04/24/18 06:20 BUN 52 mg/dL (7-21) H 04/24/18 06:20 Creatinine 1.3 mg/dl (0.7-1.2) H 04/24/18 06:20 Est GFR ( Amer) 47 04/24/18 06:20 Est GFR (Non-Af Amer) 39 04/24/18 06:20 Random Glucose 97 mg/dL (70-110) 04/24/18 06:20 Calcium 8.9 mg/dL (8.4-10.5) 04/24/18 06:20 Phosphorus 4.6 mg/dL (2.5-4.5) H 04/24/18 06:20 Magnesium 2.0 mg/dL (1.7-2.2) 04/24/18 06:20 Total Bilirubin 0.4 mg/dL (0.2-1.3) 04/24/18 06:20 AST 20 U/L (14-36) 04/24/18 06:20 ALT 24 U/L (7-56) 04/24/18 06:20 Alkaline Phosphatase 91 U/L (38-126) 04/24/18 06:20 Lactate Dehydrogenase 420 U/L (333-699) 04/23/18 17:30 Total Creatine Kinase < 20 U/L (35-230) L 04/23/18 17:30 Troponin I 0.02 ng/mL 04/23/18 17:30 Total Protein 6.7 g/dL (5.8-8.3) 04/24/18 06:20 Albumin 3.1 g/dL (3.0-4.8) 04/24/18 06:20 Globulin 3.6 gm/dL 04/24/18 06:20 Albumin/Globulin Ratio 0.9 (1.1-1.8) L 04/24/18 06:20 Amylase 67 U/L (35-125) 04/23/18 17:30 Lipase 242 U/L (23-300) 04/23/18 17:30 Procalcitonin 0.32 NG/ML (0.19-0.49) 04/24/18 06:20 Urine Color Dark red (YELLOW) 04/23/18 18:50 Urine Appearance Bloody (CLEAR) 04/23/18 18:50 Urine pH 7.0 (4.7-8.0) 04/23/18 18:50 Ur Specific [place] 1.025 (1.005-1.035) 04/23/18 18:50 Urine Protein >=300 mg/dL (<30 mg/dL) H 04/23/18 18:50 Urine Glucose (UA) Negative mg/dL (NEGATIVE) 04/23/18 18:50 Urine Ketones Negative mg/dL (NEGATIVE) 04/23/18 18:50 Urine Blood Large (NEGATIVE) H 04/23/18 18:50 Urine Nitrate Positive (NEGATIVE) H 04/23/18 18:50 Urine Bilirubin Small (NEGATIVE) H 04/23/18 18:50 Urine Urobilinogen 0.2 E.U./dL (<1 E.U./dL) 04/23/18 18:50 Ur Leukocyte Esterase Moderate Megan/uL (NEGATIVE) H 04/23/18 18:50 Urine RBC Tntc /hpf (0-2) 04/23/18 18:50 Urine WBC Tntc /hpf (0-6) 04/23/18 18:50 Ur Epithelial Cells Many /hpf (0-5) 04/23/18 18:50 Urine Bacteria Small (NEG) 04/23/18 18:50 Salicylates < 1 mg/dL (2.0-20.0) L 04/23/18 17:30 Acetaminophen < 10.0 ug/ml (10.0-20.0) L 04/23/18 17:30 Alcohol, Quantitative < 10 mg/dL (0-10) 04/23/18 17:30 - Hospital Course Hospital Course: Radha Matos, PGY-1, Internal Medicine Discharge Summary for Dr. Shaw 88 year old female with past medical history of hypertension, hyperlipidemia, COPD, depression, colostomy with perforated viscus presents from [facility] for 2 weeks of abdominal pain, UTI, and suicidal ideation. Patient had signed DNR/DNI/DNH request but due to patient's suicidal ideation, patient was hospitalized for treatment. Patient was found to have asymptomatic bacteriuria with urinanalysis showing large blood, positive nitrite, small bilirubin, moderate LE, TNTC of RBC and WBC, many epithelial cells, and small bacteria. She initially had a leukocytosis which trended down during this admission. Urine culture found gram negative hedy and gram positive cocci, which was found to be enterococcus and E. Coli. Patient was initially treated with rocephin on admission, but changed to cefpodoximine on day 2. Patient has received 3 days of cefpodoximine. Due to patient's asymptomatic bacteriuria, patient was deemed to not need antibiotics on discharge since she does not have the risk factors of hip surgery, cystoscopy, or . Abdominal pain improved throughout admission as patient has chronic abdominal pain from the perforated viscus and colostomy. Patient initially had suicidal ideations on day one but patient no longer has suicidal ideations. Patient was initally started on a 1:1 with necessary follow up with psychiatrist. As per Dr. Hinds, patient does not pose a danger to self or others and needs to be followed up with psychiatrist within 48 hours after discharge after discharge to [facility]. As per psychiatry and case management recommendations, patient will be discharged back to [facility] for subacute rehabilitation at this time. Patient should follow up with psychiatrist within 48 hours of discharge. Patient should take all medications as prescribed. Patient should return to the emergency department if patient has any worsening symptoms or concerning symp toms. This is a brief summary of the events that occurred at this hospital visit. For further details, please refer to the hospital documentation. - Date & Time of H&P Date of H&P: 04/24/18 Time of H&P: 00:16 Discharge Exam - Head Exam Head Exam: ATRAUMATIC, NORMAL INSPECTION - Eye Exam Eye Exam: EOMI Pupil Exam: PERRL - Respiratory Exam Respiratory Exam: Clear to PA & Lateral, NORMAL BREATHING PATTERN - Cardiovascular Exam Cardiovascular Exam: REGULAR RHYTHM - GI/Abdominal Exam Additional comments: ostomy intact - Extremities Exam Extremities exam: full ROM - Neurological Exam Neurological exam: Alert, CN II-XII Intact, Oriented x3 - Skin Skin Exam: Dry, Intact Discharge Plan - Follow Up Plan Condition: STABLE Disposition: NURSING FACILITY MEDICAID CERT Instructions: Extended-Spectrum Beta Lactamase Infection Additional Instructions: Please follow up with PCP within one week. Please follow up with psychiatry once discharged within a week. Please take all home medications as prescribed. You do not need to take antibiotics because you have asympatomatic bacteriuria and do not have any indications for antibiotics at this time. Please return to the emergency department if you have any concerning or worsening symptoms. Referrals: [facility] [Outside] <Bola Shaw - Last Filed: 04/26/18 18:15> Provider - Provider Date of Admission: 04/23/18 19:15 Attending physician: Vinny Wilson MD Consults: 04/23/18 23:56 Psychiatry Consult Routine Comment: Consulting Provider: Goldy Nails Consulting Physician: Goldy Nails Reason for Consult: suicidal ideations 04/25/18 16:26 Palliative Care Consult Routine Comment: Consulting Provider: Evon Medellin Physician Instructions: Reason For Exam: Patient has lost will to live Hospital Course - Lab Results Lab Results: Micro Results 04/23/18 21:00 Urine,Clean Catch Urine Culture - Final Escherichia Coli Enterococcus Faecalis Most Recent Lab Values WBC 14.4 10^3/uL (4.5-11.0) H D 04/24/18 06:20 RBC 3.78 10^6/uL (3.5-6.1) 04/24/18 06:20 Hgb 10.7 g/dL (12.0-16.0) L 04/24/18 06:20 Hct 33.6 % (36.0-48.0) L 04/24/18 06:20 MCV 88.9 fl (80.0-105.0) 04/24/18 06:20 MCH 28.3 pg (25.0-35.0) 04/24/18 06:20 MCHC 31.8 g/dl (31.0-37.0) 04/24/18 06:20 RDW 16.9 % (11.5-14.5) H 04/24/18 06:20 Plt Count 411 10^3/uL (120.0-450.0) 04/24/18 06:20 MPV 9.7 fl (7.0-11.0) 04/24/18 06:20 Gran % 71.5 % (50.0-68.0) H 04/24/18 06:20 Lymph % (Auto) 19.2 % (22.0-35.0) L 04/24/18 06:20 [place] % (Auto) 6.4 % (1.0-6.0) H 04/24/18 06:20 Eos % (Auto) 2.6 % (1.5-5.0) 04/24/18 06:20 Baso % (Auto) 0.3 % (0.0-3.0) 04/24/18 06:20 Gran # 10.27 (1.4-6.5) H 04/24/18 06:20 Lymph # (Auto) 2.8 (1.2-3.4) 04/24/18 06:20 [place] # (Auto) 0.9 (0.1-0.6) H 04/24/18 06:20 Eos # (Auto) 0.4 (0.0-0.7) 04/24/18 06:20 Baso # (Auto) 0.05 K/mm3 (0.0-2.0) 04/24/18 06:20 PT 14.7 SECONDS (9.4-12.5) H 04/23/18 17:30 INR 1.28 04/23/18 17:30 APTT 25.8 Seconds (25.1-36.5) 04/23/18 17:30 Sodium 138 mmol/L (132-148) 04/24/18 06:20 Potassium 4.6 mmol/L (3.6-5.0) 04/24/18 06:20 Chloride 112 mmol/L (98-107) H 04/24/18 06:20 Carbon Dioxide 16 mmol/L (21-33) L 04/24/18 06:20 Anion Gap 14 (10-20) 04/24/18 06:20 BUN 52 mg/dL (7-21) H 04/24/18 06:20 Creatinine 1.3 mg/dl (0.7-1.2) H 04/24/18 06:20 Est GFR ( Amer) 47 04/24/18 06:20 Est GFR (Non-Af Amer) 39 04/24/18 06:20 Random Glucose 97 mg/dL (70-110) 04/24/18 06:20 Calcium 8.9 mg/dL (8.4-10.5) 04/24/18 06:20 Phosphorus 4.6 mg/dL (2.5-4.5) H 04/24/18 06:20 Magnesium 2.0 mg/dL (1.7-2.2) 04/24/18 06:20 Total Bilirubin 0.4 mg/dL (0.2-1.3) 04/24/18 06:20 AST 20 U/L (14-36) 04/24/18 06:20 ALT 24 U/L (7-56) 04/24/18 06:20 Alkaline Phosphatase 91 U/L (38-126) 04/24/18 06:20 Lactate Dehydrogenase 420 U/L (333-699) 04/23/18 17:30 Total Creatine Kinase < 20 U/L (35-230) L 04/23/18 17:30 Troponin I 0.02 ng/mL 04/23/18 17:30 Total Protein 6.7 g/dL (5.8-8.3) 12/11/18 06:20 Albumin 3.1 g/dL (3.0-4.8) 04/24/18 06:20 Globulin 3.6 gm/dL 04/24/18 06:20 Albumin/Globulin Ratio 0.9 (1.1-1.8) L 04/24/18 06:20 Amylase 67 U/L (35-125) 04/23/18 17:30 Lipase 242 U/L (23-300) 04/23/18 17:30 Procalcitonin 0.32 NG/ML (0.19-0.49) 04/24/18 06:20 Urine Color Dark red (YELLOW) 04/23/18 18:50 Urine Appearance Bloody (CLEAR) 04/23/18 18:50 Urine pH 7.0 (4.7-8.0) 04/23/18 18:50 Ur Specific [place] 1.025 (1.005-1.035) 04/23/18 18:50 Urine Protein >=300 mg/dL (<30 mg/dL) H 04/23/18 18:50 Urine Glucose (UA) Negative mg/dL (NEGATIVE) 04/23/18 18:50 Urine Ketones Negative mg/dL (NEGATIVE) 04/23/18 18:50 Urine Blood Large (NEGATIVE) H 04/23/18 18:50 Urine Nitrate Positive (NEGATIVE) H 04/23/18 18:50 Urine Bilirubin Small (NEGATIVE) H 04/23/18 18:50 Urine Urobilinogen 0.2 E.U./dL (<1 E.U./dL) 04/23/18 18:50 Ur Leukocyte Esterase Moderate Megan/uL (NEGATIVE) H 04/23/18 18:50 Urine RBC Tntc /hpf (0-2) 04/23/18 18:50 Urine WBC Tntc /hpf (0-6) 04/23/18 18:50 Ur Epithelial Cells Many /hpf (0-5) 04/23/18 18:50 Urine Bacteria Small (NEG) 04/23/18 18:50 Salicylates < 1 mg/dL (2.0-20.0) L 04/23/18 17:30 Acetaminophen < 10.0 ug/ml (10.0-20.0) L 04/23/18 17:30 Alcohol, Quantitative < 10 mg/dL (0-10) 04/23/18 17:30
[2018-04-26] MEDS: Cefpodoxime (Vantin) 200 mg Tab PO SCH (18:46)
[2018-04-26] MEDS: Metoprolol Succinate 50 mg XL Tab PO SCH (18:46)
--- NOTE | 2018-04-26 18:56 | PN ---
DATE: 04/26/2018 FOLLOWUP NOTE HISTORY OF PRESENT ILLNESS: In short, the patient is an 88-year-old female. The patient was admitted on the medical side for abdominal pain. Psych consult was called for evaluation of possible suicidal ideations. The patient was seen and examined today. The patient presented to be alert and oriented, somewhat annoyed. The patient seems to be disengaged and apathetic, not interested to have interview. Meanwhile, the patient denied any thoughts of killing herself. The patient was making some sarcastic statements such as killing herself with a fingernail. The patient does not have any intent or plan to kill herself. The patient asked to be watched for her colostomy. VITAL SIGNS: Seem to be stable. Temperature 98, pulse is 85, blood pressure 112/55, respiration 18, oxygen saturation is 97. MEDICATIONS: Reviewed. The patient is sporadic with taking her medications. The patient has tendency of refusing medication when she does not feel she needed. The patient was refusing to take Lexapro, but the patient was compliant with prednisone, Percocet, as well as Toprol. LABORATORY DATA: Labs were reviewed. Most recent was from 04/24/2018. MENTAL STATUS EXAMINATION: The patient presented to be alert, somewhat annoyed and irritable. Mood described as okay. Affect was constricted. Thought process seems to be concrete. Thought content, the patient denied any psychotic symptoms and does not present to be psychotic. In regards of suicidal ideation, this newswriter does not feel that the patient is in any imminent danger to self or others. Insight and judgment seem to be limited. Impulses are well controlled. IMPRESSION: Mood disorder due to general medical condition, rule out major depressive disorder. PLAN: Continue current management and continue current medications. We will follow up and advise accordingly. At this point, the patient was noncompliant with Lexapro. There is no point to increase that medication. We will follow up and advice. Hawa Hinds MD JUNAID
[2018-04-26 21:52] VITALS: BP 118/68; PULSE 84; TEMP 98.7; O2SAT 96
== END 2018-04-27 01:00 | DRG 690 ==
LOC: ED 14:53 → MERGE 19:15 → ERH 19:15 → 5RNO 04-24 01:21
PROVIDERS: ADMIT Internal Medicine; ATTEND Internal Medicine
PROC: 3E0F7GC Introduction of Other Therapeutic Substance into Respiratory Tract, Via Natural or Artificial Opening (ICD-10-PCS; principal; 2018-04-24)
DX: N39.0 Urinary tract infection, site not specified (principal); R45.851 Suicidal ideations; E87.1 Hypo-osmolality and hyponatremia; B96.20 Unspecified Escherichia coli [E. coli] as the cause of diseases classified elsewhere; B95.2 Enterococcus as the cause of diseases classified elsewhere; E86.0 Dehydration; E87.5 Hyperkalemia; J44.9 Chronic obstructive pulmonary disease, unspecified; I10 Essential (primary) hypertension; Z66 Do not resuscitate; F32.9 Major depressive disorder, single episode, unspecified; F06.30 Mood disorder due to known physiological condition, unspecified; Z93.3 Colostomy status; Z90.710 Acquired absence of both cervix and uterus